=== PATIENT | female | born 1980 | race Caucasian/White ===

== ENCOUNTER 2024-04-12 14:04 | Outpatient (AMB) | payer BC, SELFPAY ==
--- NOTE | 2024-04-12 14:16 | MHC.PC.OV ---
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 Allergies No Known Allergies Allergy (Verified 04/12/24 14:16) Medication List - Last Reconciled 04/12/24 by Kacie Luna MD citalopram 20 mg PO ONCE hydrochlorothiazide mg PO DAILY Tobacco use date assessed: 04/12/24 Dental Screening Dental Screen Date: 04/12/24 Did you have a dental visit in the last 12 months?: Yes Did you have a dental problem in the last 6 months where you did not have access to dental care?: No Was dental information given to patient?: Patient has dentist HPI HPI Comments History of Present Illness Details The patient is a 43 year old female with a past medical history of depression, anxiety, hypertension, JANNA presenting for follow up JANNA: Moderate obstructive sleep apnea when tested in 2022 CV: HTN. On hctz BP: On celexa 20mg daily Was following with Dr Logan-they closed. Had her first mammogram-she was called back, got breast biopsy and it was benign ROS CONSTITUTIONAL: Denies weight loss, fever and chills. HEENT: Denies changes in vision and hearing. RESPIRATORY: Denies SOB and cough. CV: Denies palpitations and CP GI: Denies abdominal pain, nausea, vomiting and diarrhea. : Denies dysuria and urinary frequency. MSK: Denies new myalgia and joint pain. SKIN: Denies rash and pruritus. NEUROLOGICAL: Denies headache PSYCHIATRIC: Denies recent changes in mood. PHYSICAL EXAM: GENERAL: Alert and oriented x 3. NAD EYES: EOMI. Anicteric. HENT: Moist mucous membranes. No scleral icterus. No cervical lymphadenopathy. LUNGS: Clear to auscultation bilaterally. CARDIOVASCULAR: Regular rate and rhythm. No murmur. No JVD. ABDOMEN: Soft, non-tender +bs EXTREMITIES: No edema. Non-tender. SKIN: No rashes or lesions. Warm. NEUROLOGIC: No focal neurological deficits. CN II-XII grossly intact PSYCHIATRIC: Cooperative. 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 1. Little interest or pleasure in doing things: not at all 2. Feeling down, depressed, or hopeless: several days 3. Trouble falling or staying asleep, or sleeping too much: not at all 4. Feeling tired or having little energy: several days 5. Poor appetite or overeating: not at all 6. Feeling bad about yourself - or that you are a failure or have let yourself or your family down: not at all 7. Trouble concentrating on things, such as reading the newspaper or watching television: not at all 8. Moving or speaking so slowly that other people could have noticed. Or the opposite - being so fidgety or restless that you have been moving around a lot more than usual: not at all 9. Thoughts that you would be better off or of hurting yourself in some way: not at all Total score: 2 Depression Screening Interpretation: Negative Depression Screening Done: Yes 39484 - PHQ-9 Billing: Yes Source: Developed by Drs. Rob Muir, Karishma Bella, Leandro Henry and colleagues, with an educational william from [employer]. Thrive Questionnaire Date Thrive assessed: 04/12/24 I am a: Patient What is your living situation today?: I have a steady place to live Within the past 12 months, did the food you bought not last and you didn't have the money to get more?: Never true Within the past 12 months, did you worry whether your food would run out before you got money to buy more?: Never true Do you have trouble paying for medicines?: No Do you have trouble getting transportation to medical appointments?: No Do you have trouble paying your heating and electricity bill?: No Do you have trouble taking care of your child, family member or friend?: No Do you have trouble with day-to-day activities such as bathing, preparing meals, shopping, managing finances, etc.?: No Are you currently unemployed and looking for a job?: No Are you interested in more education?: No Please select the resources that you would like help with: None Currently or been in a relationship where the following occur: No concerns reported THRIVE Score: 0 MICHEAL-7 AMB Questionnaire MICHEAL-7 Date MICHEAL - 7 assessed: 04/12/24 Feeling nervous, anxious, or on edge: 1 = Several days Not being able to stop or control worryin = Not at all Worrying too much about different things: 0 = Not at all Trouble relaxin = Not at all Being so restless that it is hard to sit still: 0 = Not at all Becoming easily annoyed or irritable: 0 = Not at all Feeling afraid as if something awful might happen: 0 = Not at all Total MICHEAL-7 score (0-4 normal; 5-9 mild; 10-14 moderate; 15-21 severe): 1 Source: Developed by Drs. Rob Muir, Karishma Bella, Leandro Henry and colleagues, with an educational william from [employer]. MICHEAL-7 Assessment Billing MICHEAL-7 Assessment Tool: MICHEAL-7 Assessment 99988 Physical exam (Primary Care) Vital Signs: Last Vital Signs Pulse 81 04/12/24 14:21 Resp 14 04/12/24 14:21 BP 124/86 04/12/24 14:21 Pulse Ox 97 04/12/24 14:21 Oxygen Delivery Method Room Air 04/12/24 14:21 BMI result Body Mass Index 32.3 Depression Screening Interpretation: Negative Currently or been in a relationship where the following occur: No concerns reported Coding Level of Care Code Est Pt Level 4 (43749) Complex EM visit Add On G2211 Diagnoses Anxiety F41.9 Primary hypertension I10 Hypertension type: primary hypertension Additional Codes MICHEAL-7 Assessment Billing - MICHEAL-7 Assessment Tool: MICHEAL-7 Assessment 68690 ([id number]) PHQ-9 - 04595 - PHQ-9 Billing: Yes ([id number]) Assessment & Plan Assessment & Plan (1) Anxiety: Code(s): F41.9 - Anxiety disorder, unspecified Category: Medical Plan: controlled on current medications which are refilled (2) Hypertension: Code(s): I10 - Essential (primary) hypertension Category: Medical Qualifiers: Hypertension type: primary hypertension Qualified Code(s): I10 - Essential (primary) hypertension Plan: controlled on current medications Orders: Orders Comprehensive Met. Panel Today F41.9 - Anxiety disorder, unspecified, I10 - Essential (primary) hypertension, Z13.0 - Encounter for screening for diseases of the blood and blood-forming organs and certain disorders involving the immune mechanism, Z13.220 - Encounter for screening for lipoid disorders, Z13.228 - Encounter for screening for other metabolic disorders Lipid Panel Today F41.9 - Anxiety disorder, unspecified, I10 - Essential (primary) hypertension, Z13.0 - Encounter for screening for diseases of the blood and blood-forming organs and certain disorders involving the immune mechanism, Z13.220 - Encounter for screening for lipoid disorders, Z13.228 - Encounter for screening for other metabolic disorders TSH reflex Free T4 Today F41.9 - Anxiety disorder, unspecified, I10 - Essential (primary) hypertension, Z13.0 - Encounter for screening for diseases of the blood and blood-forming organs and certain disorders involving the immune mechanism, Z13.220 - Encounter for screening for lipoid disorders, Z13.228 - Encounter for screening for other metabolic disorders Complete Blood Count Auto Diff Today F41.9 - Anxiety disorder, unspecified, I10 - Essential (primary) hypertension, Z13.0 - Encounter for screening for diseases of the blood and blood-forming organs and certain disorders involving the immune mechanism, Z13.220 - Encounter for screening for lipoid disorders, Z13.228 - Encounter for screening for other metabolic disorders Medications: New hydrochlorothiazide 12.5 mg PO DAILY 90 tabs 3RF
[2024-04-12 14:21] VITALS: BP 124/86; PULSE 81; RESP 14; O2SAT 97; BMI 32.3
== END 2024-04-12 14:42 | disposition home or self-care (01) ==
PROVIDERS: PCP Internal Medicine; Visit Provider Internal Medicine
DX: F41.9 Anxiety disorder, unspecified (principal); I10 Essential (primary) hypertension

== ENCOUNTER → 2024-04-12 14:04 | Outpatient (BNVA) | payer BC, SELFPAY | PROVIDERS: PCP Internal Medicine; Visit Provider Internal Medicine | DX: F41.9 Anxiety disorder, unspecified (principal); I10 Essential (primary) hypertension; G47.33 Obstructive sleep apnea (adult) (pediatric); Z79.899 Other long term (current) drug therapy | CPT/HCPCS: 96127 ==

== ENCOUNTER 2024-04-12 14:48 | Outpatient (REF) | payer BC, SELFPAY ==
[2024-04-12 17:50] LABS: MANUAL DIFF FLAG NO
[2024-04-12 18:18] LABS: Alanine Aminotransferase 17 U/L (0-31); Albumin Level 4.3 g/dL (3.5-5.0); Alkaline Phosphatase 39 U/L (39-117); Anion Gap 11 (12-20); Aspartate Amino Transferase 19 U/L (5-31); Bilirubin Total 0.3 mg/dL (0.0-1.0); Blood Urea Nitrogen 15 mg/dL (9-16); Calcium 9.4 mg/dL (8.4-10.2); Carbon Dioxide 28 mmol/L (22-29); Chloride 102 mmol/L (96-108); Cholesterol 182 mg/dL (<200); Estimated Glomerular Filt Rate > 60; Glucose Random 96 mg/dL (60-115); HDL Cholesterol 48 mg/dL (>40); LDL Cholesterol Calculated 114 mg/dL (<100); Potassium 3.9 mmol/L (3.3-5.1); Sodium 137 mmol/L (135-145); Total Protein 7.5 g/dL (6.5-8.0); Triglycerides 100 mg/dL (<150)
[2024-04-12 18:21] LABS: Basophils Percent Auto 0.5 % (0-2); Eosinophils Absolute Auto 0.1 X10*3/uL (0.0-0.4); Eosinophils Percent Auto 1.2 % (0-4); Hematocrit 41.8 % (37.0-47.0); Hemoglobin 14.3 g/dl (12.0-16.0); Imm Gran Abs Auto 0.02 X10*3/uL (0.00-0.03); Imm Gran Pct Auto 0.3 % (0.0-0.4); Lymphocytes Absolute Auto 2.9 X10*3/uL (1.2-4.9); Lymphocytes Percent Auto 37.4 % (20-40); Mean Corpuscular HGB Conc 34.2 g/dl (31.0-35.0); Mean Corpuscular Hemoglobin 31.6 pg (27.0-33.0); Mean Corpuscular Volume 92.5 fL (80.0-98.0); Mean Platelet Volume 10.1 fL (9.4-12.3); Monocytes Absolute Auto 0.6 X10*3/uL (0.1-1.2); Monocytes Percent Auto 7.6 % (2-11); Neutrophils Absolute Auto 4.1 x10*3/uL (2.0-8.3); Platelet Count 308 X10*3/uL (160-400); Red Blood Count 4.52 X10*6/uL (4.20-5.50); Red Cell Distribution Width 11.9 % (11.0-16.0); White Blood Count 7.6 X10*3/uL (4.8-10.8)
[2024-04-12 18:34] LABS: TSH reflex Free T4 1.17 uIU/mL (0.32-4.0)
== END 2024-04-12 14:49 | disposition home or self-care (01) ==
LOC: HO.WFDLDS 14:48
PROVIDERS: Visit Provider Internal Medicine
DX: I10 Essential (primary) hypertension (principal); F41.9 Anxiety disorder, unspecified; Z13.228 Encounter for screening for other metabolic disorders; Z13.220 Encounter for screening for lipoid disorders; Z13.0 Encounter for screening for diseases of the blood and blood-forming organs and certain disorders involving the immune mechanism
CPT/HCPCS: 36415; 80053; 80061; 84443; 85025

== ENCOUNTER 2024-06-25 10:24 | Outpatient (AMB) | payer BC, SELFPAY ==
--- NOTE | 2024-06-25 10:29 | MHC.PC.OV ---
Vital Signs 06/25/24 10:32 Height 5 ft 2.6 in Weight 181 lb BMI 32.5 BP 122/82 Blood Pressure Location Lt brachial Position Sitting Respiration 12 Pulse 73 Pulse Source Pulse Oximeter Pulse Oximetry (%) 97 Oxygen Delivery Method Room Air Intake Visit Reasons: leg pain Intake Note: Left leg pain. Sxs for three and a half week. Starts at the hip and goes down to the knee. 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 Allergies No Known Allergies Allergy (Verified 06/25/24 10:31) Tobacco use date assessed: 06/25/24 Dental Screening Dental Screen Date: 06/25/24 Did you have a dental visit in the last 12 months?: Yes Did you have a dental problem in the last 6 months where you did not have access to dental care?: No Was dental information given to patient?: Patient has dentist HPI HPI Comments History of Present Illness Details The patient is a 43 year old female with a past medical history of depression, anxiety, hypertension, JANNA presenting for follow up Reports a 3.5 week history of left leg pain and burning. Starts in anterior left hip with radiation and then pain in the left knee pain. Worse at night, cannot find a tolerable position. 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 JANNA: Moderate obstructive sleep apnea when tested in 2022 CV: HTN. On hctz BP: On celexa 20mg daily Was following with Dr Logan-they closed. Had her first mammogram-she was called back, got breast biopsy and it was benign ROS see HPI PHYSICAL EXAM: GENERAL: Alert and oriented x 3. NAD EYES: EOMI. Anicteric. HENT: Moist mucous membranes. No scleral icterus. No cervical lymphadenopathy. LUNGS: Clear to auscultation bilaterally. CARDIOVASCULAR: Regular rate and rhythm. No murmur. No JVD. MSK: Anterior left hip joint ttp, from hip, knee. No visible swelling or redness ABDOMEN: Soft, non-tender +bs EXTREMITIES: No edema. Non-tender. SKIN: No rashes or lesions. Warm. NEUROLOGIC: No focal neurological deficits. CN II-XII grossly intact PSYCHIATRIC: Cooperative. 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 1. Little interest or pleasure in doing things: not at all 2. Feeling down, depressed, or hopeless: not at all 3. Trouble falling or staying asleep, or sleeping too much: several days 4. Feeling tired or having little energy: several days 5. Poor appetite or overeating: not at all 6. Feeling bad about yourself - or that you are a failure or have let yourself or your family down: not at all 7. Trouble concentrating on things, such as reading the newspaper or watching television: not at all 8. Moving or speaking so slowly that other people could have noticed. Or the opposite - being so fidgety or restless that you have been moving around a lot more than usual: not at all 9. Thoughts that you would be better off or of hurting yourself in some way: not at all Total score: 2 Depression Screening Interpretation: Negative Depression Screening Done: Yes 75166 - PHQ-9 Billing: Yes Source: Developed by Drs. Rob Muir, Karishma Bella, Leandro Henry and colleagues, with an educational william from [employer]. Thrive Questionnaire Date Thrive assessed: 06/25/24 I am a: Patient What is your living situation today?: I have a steady place to live Within the past 12 months, did the food you bought not last and you didn't have the money to get more?: Never true Within the past 12 months, did you worry whether your food would run out before you got money to buy more?: Never true Do you have trouble paying for medicines?: No Do you have trouble getting transportation to medical appointments?: No Do you have trouble paying your heating and electricity bill?: No Do you have trouble taking care of your child, family member or friend?: No Do you have trouble with day-to-day activities such as bathing, preparing meals, shopping, managing finances, etc.?: No Are you currently unemployed and looking for a job?: No Are you interested in more education?: No Please select the resources that you would like help with: None Currently or been in a relationship where the following occur: No concerns reported THRIVE Score: 0 AUDIT C Alcohol Use Questionnaire (AUDIT-C) 1. How often do you have a drink containing alcohol?: Monthly or less 2. How many drinks containing alcohol do you have on a typical day when you are drinking?: 3 or 4 3. How often do you have six or more drinks on one occasion?: Never Total Score: 2 MICHEAL-7 AMB Questionnaire MICHEAL-7 Date MICHEAL - 7 assessed: 06/25/24 Feeling nervous, anxious, or on edge: 1 = Several days Not being able to stop or control worryin = Not at all Worrying too much about different things: 0 = Not at all Trouble relaxin = Several days Being so restless that it is hard to sit still: 0 = Not at all Becoming easily annoyed or irritable: 0 = Not at all Feeling afraid as if something awful might happen: 0 = Not at all Total MICHEAL-7 score (0-4 normal; 5-9 mild; 10-14 moderate; 15-21 severe): 2 Source: Developed by Drs. Rob Muir, Karishma Bella, Leandro Henry and colleagues, with an educational william from [employer]. MICHEAL-7 Assessment Billing MICHEAL-7 Assessment Tool: MICHEAL-7 Assessment 57051 Physical exam (Primary Care) Vital Signs: Last Vital Signs Pulse 73 06/25/24 10:32 Resp 12 06/25/24 10:32 BP 122/82 06/25/24 10:32 Pulse Ox 97 06/25/24 10:32 Oxygen Delivery Method Room Air 06/25/24 10:32 BMI result Body Mass Index 32.5 Tobacco/Smoking Status: Tobacco use Status Tobacco use date assessed 04/12/24 04/12/24 14:26 Patient Tobacco Use Status Never used Tobacco 04/12/24 14:26 e-Cigarette/Vaping Use Never Used 04/12/24 14:26 Depression Screening Interpretation: Negative Thrive Assessment: Date of Thrive Assessment Date Thrive assessed 04/12/24 04/12/24 14:44 Currently or been in a relationship where the following occur: No concerns reported Coding Level of Care Code Est Pt Level 4 (73220) Diagnoses Bursitis of left hip, unspecified bursa M70.72 Hip bursitis location: unspecified Left leg pain M79.605 Additional Codes MICHEAL-7 Assessment Billing - MICHEAL-7 Assessment Tool: MICHEAL-7 Assessment 27350 ([id number]) PHQ-9 - 84999 - PHQ-9 Billing: Yes ([id number]) Assessment & Plan Assessment & Plan (1) Bursitis of left hip: Code(s): M70.72 - Other bursitis of hip, left hip Category: Medical Qualifiers: Hip bursitis location: unspecified Qualified Code(s): M70.72 - Other bursitis of hip, left hip (2) Left leg pain: Code(s): M79.605 - Pain in left leg Category: Medical Plan Bursitis v tendinitis v lumbar radicular pain Prednisone x 5 days sent Gabapentin 300-600mg before bed Continue motrin, tylenol prn Referral to orthopedics placed Orders: Orders Lyme IgG/IgM w/reflex to WB Today M79.605 - Pain in left leg Referrals Orthopedics Referral M70.72 - Other bursitis of hip, left hip, M79.605 - Pain in left leg Medications: New gabapentin 600 mg (2 x 300 mg) PO BEDTIME 60 caps 0RF prednisone 40 mg (2 x 20 mg) PO DAILY 10 tabs 0RF
[2024-06-25 10:32] VITALS: BP 122/82; PULSE 73; RESP 12; O2SAT 97; BMI 32.5
== END 2024-06-25 10:49 | disposition home or self-care (01) ==
LOC: HO.HMCFM 10:25
PROVIDERS: PCP Internal Medicine; Visit Provider Internal Medicine
DX: M70.72 Other bursitis of hip, left hip (principal); M79.605 Pain in left leg

== ENCOUNTER → 2024-06-25 10:24 | Outpatient (BNVA) | payer BC, SELFPAY | PROVIDERS: PCP Internal Medicine; Visit Provider Internal Medicine | DX: M70.72 Other bursitis of hip, left hip (principal); M79.605 Pain in left leg; G47.33 Obstructive sleep apnea (adult) (pediatric); I10 Essential (primary) hypertension; F32.A Depression, unspecified; F41.9 Anxiety disorder, unspecified; Z79.899 Other long term (current) drug therapy | CPT/HCPCS: 96127 ==

== ENCOUNTER 2024-09-30 08:09 | Outpatient (REF) | payer BC, SELFPAY ==
--- NOTE | ~2024-09-30 | XR_ITS ---
EXAMINATION: XR HIP 2 OR MORE VIEWS LEFT HISTORY: M25.559 - Pain in unspecified hip COMPARISON: There are no prior studies available for comparison. FINDINGS: A single AP view of the pelvis and two views of the left hip are submitted. Osseous mineralization is normal. There is no fracture or dislocation. The joint space is maintained. The soft tissues are unremarkable. XR/XR hip LT min 2V IMPRESSION: Unremarkable examination of the left hip. Electronically signed by: Rob Wood MD 09/30/2024 09:23 AM EDT
== END 2024-09-30 08:10 | disposition home or self-care (01) ==
LOC: HO.HOSX 08:09
PROVIDERS: Visit Provider Physician Assistant
DX: M25.552 Pain in left hip (principal); M79.605 Pain in left leg; M54.50 Low back pain, unspecified
CPT/HCPCS: 73502

== ENCOUNTER 2024-09-30 08:52 | Outpatient (AMB) | payer BC, SELFPAY ==
--- NOTE | 2024-09-30 08:58 | MHC.OFFVIS ---
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 Patient reports ongoing pain for about 3 months. No previous treatments. She notices that her hip pain is on the lateral aspect and it moves down to the medial aspect of the knee. Patient states that her pain is worse when she is laying down at night. Patient has tried prednisone and gabapentin that her PCP prescribed her but it didn't give her relief. 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 Prescott is a 43-year-old female who presents to the office today for evaluation of left hip pain. She reports the pain has been present for the past 3 months. She reports a sudden onset and gradual increase in pain. She denies any injury or trauma to the area. She was seen by her PCP who diagnosed her with bursitis and prescribed gabapentin and prednisone. She reports that these oral medications did not assist with her pain. 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 She does have a history of low back pain with sciatica. 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 No ecchymosis, erythema, or edema. Full hip ROM in all planes. No groin pain with internal and external rotation. No tenderness to palpation over the greater trochanteric bursa. 5/5 strength with resisted hip flexion, knee extension, abduction, and abduction. Able to perform straight leg raise. NVI. Psych Appearance: grossly normal Mental Status: mental status grossly normal Attitude: cooperative Assessment & Plan Assessment & Plan (1) Lumbar pain with radiation down left leg: Code(s): M54.50 - Low back pain, unspecified; M79.605 - Pain in left leg Category: Medical Plan Ms. Prescott is a 43-year-old female who presents to the office today for evaluation of left hip pain. She reports the pain has been present for the past 3 months. She reports a sudden onset and gradual increase in pain. She denies any injury or trauma to the area. She was seen by her PCP who diagnosed her with bursitis and prescribed gabapentin and prednisone. She reports that these oral medications did not assist with her pain. 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 She does have a history of low back pain with sciatica. While the office today, the patient declines any groin pain. Additionally, she denies any groin pain with internal and external rotation. She is able to perform internal external rotation to full range without discomfort. She reports that there has been what feels like nerve pain along the anterior aspect of the quad. X-rays obtained in the office today of the left hip and pelvis were reviewed by me, Patience Hernandez PA-C, and are negative for any acute fracture or dislocation. I have recommended an evaluation with Dr. Yan for evaluation of her lower back. She will follow up with me PRN, sooner if needed. Orders: Orders XR hip LT min 2V Today M25.559 - Pain in unspecified hip Coding Level of Care Code New Pt Level 3 (65882) Diagnoses Lumbar pain with radiation down left leg M54.50; M79.605
[2024-09-30 09:00] VITALS: BMI 33.1
== END 2024-09-30 09:17 | disposition home or self-care (01) ==
LOC: HO.HOS 08:53
PROVIDERS: PCP Internal Medicine; Visit Provider Physician Assistant
DX: M54.50 Low back pain, unspecified (principal); M79.605 Pain in left leg
CPT/HCPCS: 99203

== ENCOUNTER → 2024-09-30 08:53 | Outpatient (BNV) | payer BC, SELFPAY | PROVIDERS: Visit Provider Radiology Diagnostic Radiology | DX: M25.552 Pain in left hip (principal) | CPT/HCPCS: 73502 ==

== ENCOUNTER 2024-10-08 14:40 | Outpatient (AMB) | payer BC, SELFPAY ==
--- NOTE | 2024-10-08 14:46 | A.OFFPC_ITS ---
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 Hip normal on xray. Has upcoming appt with physiatry. JANNA: Moderate obstructive sleep apnea when tested in 2022. Not on cpap CV: HTN. On hctz. diastolic pressures still 80s/low 90s BP: On celexa 20mg daily Following with [facility] Had her first mammogram-she was called back, got breast biopsy and it was benign. Every six months at present ROS see HPI PHYSICAL EXAM: GENERAL: Alert and oriented x 3. NAD EYES: EOMI. Anicteric. HENT: Moist mucous membranes. No scleral icterus. No cervical lymphadenopathy. LUNGS: Clear to auscultation bilaterally. CARDIOVASCULAR: Regular rate and rhythm. No murmur. No JVD. MSK: Anterior left hip joint ttp, from hip, knee. No visible swelling or redness ABDOMEN: Soft, non-tender +bs EXTREMITIES: No edema. Non-tender. SKIN: No rashes or lesions. Warm. NEUROLOGIC: No focal neurological deficits. CN II-XII grossly intact PSYCHIATRIC: Cooperative. 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 Current occupational exposures/hazards: No Cognitive needs: No Hearing needs: No Vision needs: No Questionnaire Thrive Questionnaire Date Thrive assessed: 06/25/24 I am a: Patient What is your living situation today?: I have a steady place to live Within the past 12 months, did the food you bought not last and you didn't have the money to get more?: Never true Within the past 12 months, did you worry whether your food would run out before you got money to buy more?: Never true Do you have trouble paying for medicines?: No Do you have trouble getting transportation to medical appointments?: No Do you have trouble paying your heating and electricity bill?: No Do you have trouble taking care of your child, family member or friend?: No Do you have trouble with day-to-day activities such as bathing, preparing meals, shopping, managing finances, etc.?: No Are you currently unemployed and looking for a job?: No Are you interested in more education?: No Please select the resources that you would like help with: None Currently or been in a relationship where the following occur: No concerns reported THRIVE Score: 0 MICHEAL-7 AMB Questionnaire MICHEAL-7 Date MICHEAL - 7 assessed: 06/25/24 Source: Developed by Drs. Rob Muir, Karishma Bella, Leandro Henry and colleagues, with an educational william from [facility]. Physical exam (Primary Care) Vital Signs: Last Vital Signs Pulse 73 10/08/24 14:48 Resp 14 10/08/24 14:48 BP 116/90 H 10/08/24 14:54 Pulse Ox 98 10/08/24 14:48 Oxygen Delivery Method Room Air 10/08/24 14:48 BMI result Body Mass Index 32.4 Tobacco/Smoking Status: Tobacco use Status Tobacco use date assessed 10/08/24 10/08/24 14:50 Patient Tobacco Use Status Never used Tobacco 10/08/24 14:47 e-Cigarette/Vaping Use Never Used 10/08/24 14:47 Thrive Assessment: Date of Thrive Assessment Date Thrive assessed 06/25/24 10/08/24 14:47 Currently or been in a relationship where the following occur: No concerns reported Coding Level of Care Code Est Pt Prev Care 40-64y(47347) Diagnoses Physical exam Z00.00 Anxiety F41.9 Primary hypertension I10 Hypertension type: primary hypertension Assessment & Plan Assessment & Plan (1) Physical exam: Code(s): Z00.00 - Encounter for general adult medical examination without abnormal findings (2) Anxiety: Code(s): F41.9 - Anxiety disorder, unspecified Category: Medical (3) Hypertension: Code(s): I10 - Essential (primary) hypertension Category: Medical Qualifiers: Hypertension type: primary hypertension Qualified Code(s): I10 - Essential (primary) hypertension Plan 43 year old female for CPE Interval history reviewed Preventive measures for age discussed Baclofen qhs prn, can use tramadol sparingly HTN-would like to start GLP if covered, she will check with insurance. Has dx 0SA, obesity Medications: New tramadol 50 mg PO Q8H PRN 20 tabs 0RF pain baclofen 20 mg PO BEDTIME PRN 90 tabs 1RF back pain Refilled citalopram 20 mg PO ONCE 90 tabs 3RF
[2024-10-08 14:48] VITALS: BP 128/94; PULSE 73; RESP 14; O2SAT 98; BMI 32.4
[2024-10-08 14:54] VITALS: BP 116/90
== END 2024-10-08 15:24 | disposition home or self-care (01) ==
LOC: HO.HMCFM 14:41
PROVIDERS: PCP Internal Medicine; Visit Provider Internal Medicine
DX: Z00.00 Encounter for general adult medical examination without abnormal findings (principal); F41.9 Anxiety disorder, unspecified; I10 Essential (primary) hypertension

== ENCOUNTER 2024-11-15 10:45 | Outpatient (AMB) | payer BC, SELFPAY ==
--- NOTE | 2024-11-15 11:15 | MHC.OFFVIS ---
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 Patient was referred by 09/30/24. At today's visit she states that for the past two years she is having left thigh pain that is radiating into the inner knee. She states that the lower back pain is constant and the hip into the thigh pain only occurs at night, at rest. No numbness or tingling to report but she does have a burning sensation that radiates from the lower back into the left leg. She has not tried physical therapy, at home exercises or injections. She has tried ice/heat, NSAIDS and elevated when needed. Patient added that her PCP prescribed her medication but no relief. Allergies No Known Allergies Allergy (Verified 11/15/24 11:19) Medication List - Last Reconciled 11/15/24 by Clover Calix MD baclofen 20 mg PO BEDTIME PRN citalopram 20 mg PO DAILY hydrochlorothiazide 12.5 mg PO DAILY tramadol 50 mg PO Q8H PRN HPI Comments Details: Points to left lateral hip, goes to quads to medial knee area. Going on for 5-6 months. Also having left SI joint pain area, separate sensation, ongoing for past 2 years at least, on/off. Denies numbness on left foot. Feels left leg is weaker. No bladder/bowel changes. 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 Patient was appropriately conversant and oriented. Good historian. MSK: No specific abnormalities found on inspection of the spine and all extremities. No pain with palpation over the lumbar area. Tender on left SI joint. GT nontender. ITB not tender. Piriformis, gluteus, groin tendons all nontender. Lumbar ROM was full. Bilateral hip, knee and ankle ROM WNL. No ligamentous laxity or crepitance. No increased effusion. Straight-leg raising test negative. FABERE test positive left lower back pain. Gillet test is positive stiffness bilateral. Aruna test is negative. Piriformis test is negative. Scour test is negative. Strength is 5/5 in all muscle groups tested. No increased tone noted. Neurological: Neurologic examination of the upper and lower extremities was nonfocal with intact sensation, muscle stretch reflexes and without focal motor deficits . Babinski was down going bilaterally. Clonus was negative. Gait is non-antalgic without loss of balance. Patient was able to perform heel walk and toe walk. Vital Signs: BMI result Body Mass Index 32.0 Results Reviewed Results Reviewed: I independently reviewed the results of the following: SI joints appear normal. Ordering Physician: Patience Hernandez PA-C Date of Service: 09/30/24 Procedure(s): XR hip LT min 2V Accession Number(s): [id number] cc: Patience Hernandez PA-C~ EXAMINATION: XR HIP 2 OR MORE VIEWS LEFT HISTORY: M25.559 - Pain in unspecified hip COMPARISON: There are no prior studies available for comparison. FINDINGS: A single AP view of the pelvis and two views of the left hip are submitted. Osseous mineralization is normal. There is no fracture or dislocation. The joint space is maintained. The soft tissues are unremarkable. XR/XR hip LT min 2V IMPRESSION: Unremarkable examination of the left hip. I reviewed records from the following: Ortho PCP Assessment & Plan Assessment & Plan (1) Sacroiliac joint dysfunction of left side: Code(s): M53.3 - Sacrococcygeal disorders, not elsewhere classified Category: Medical Plan Based on history and exam, suspect her pain is stemming from left SI joint dysfunction. No signs of lumbar radiculopathy or myelopathy. The symptoms on her left thigh appear to be a referral pattern from the SI joint. No signs of trochanteric bursitis, ITB syndrome, or groin both. Left hip x-ray was unremarkable. Discussed treatment options. We agreed on starting physical therapy for realignment of SI joints and pelvic stabilization. Briefly discussed steroid injection in the future if not improved with PT. Assessment and plan discussed with patient, and patient was agreeable. All questions were answered thoroughly. Follow up 3 months. Clover Calix MD, LYNSEY Board Certified, [place] [employer] and [employer] (ABPMR) Board Certified, [place] [employer] Electro[employer] (ABEM) Orders: Orders PT Evaluation and Treatment Today M53.3 - Sacrococcygeal disorders, not elsewhere classified Coding Level of Care Code New Pt Level 4 (41973) Diagnoses Sacroiliac joint dysfunction of left side M53.3
[2024-11-15 11:19] VITALS: BMI 32.0
== END 2024-11-15 12:12 | disposition home or self-care (01) ==
LOC: HO.HOS 10:46
PROVIDERS: PCP Internal Medicine; Visit Provider Physical Medicine & Rehabilitation
DX: M53.3 Sacrococcygeal disorders, not elsewhere classified (principal)
CPT/HCPCS: 99203